=== PATIENT | female | born 2000 | race African-American/Black ===

== ENCOUNTER 2024-04-17 17:16 | Emergency (ER) | payer OTHER, SELFPAY ==
[2024-04-17 18:01] VITALS: BP 177/113; PULSE 90; RESP 17; TEMP 37.2; O2SAT 98; BMI 42.4
--- NOTE | 2024-04-17 18:02 | ED.GENADULT ---
HPI - General Adult General Chief complaint: General Medical Stated complaint: [facility] Time Seen by Provider: 04/17/24 21:03 Source: patient Mode of arrival: ambulatory Limitations: no limitations History of Present Illness HPI narrative: Patient is a 24-year-old female who presents to the emergency department for evaluation. [facility] reports [facility], she had unprotected sexual intercourse who days ago, she states that they were unable to get her an appointment within the 72 hour time frame and recommended she come to the emergency department for further treatment. Denies any known sexually transmitted infections from this individual but would like prophylaxis. She is currently asymptomatic She arrives to the Emergency Department hypertensive which she states is her baseline, she states that she did not take her blood pressure medication today but she typically is compliant with that. She denies dizziness, lightheadedness, headache, neck pain vision changes chest pain, shortness of breath, numbness or tingling of the extremities. Related Data Previous Rx's ?Medication ?Instructions ?Recorded doxycycline hyclate 100 mg capsule 100 mg PO BID #13 caps 04/17/24 Allergies Allergy/AdvReac Type Severity Reaction Status Date / Time No Known Allergies Allergy Verified 04/17/24 18:04 Review of Systems Review of Systems: Yes all other systems are reviewed and are negative PMFSH Past Medical History Attestation statement: The following information was validated with the patient. Source: old records reviewed Social History Social History Advance Directives: No Advance Directives Information Provided: No Do you have a plan to hurt others: No Plan Physical Exam ED Vital Signs: Vital Signs - 24 hr 04/17/24 18:01 04/17/24 22:10 Temperature 99 F 98.2 F Pulse Rate 90 78 Respiratory Rate 17 20 Blood Pressure 177/113 H 168/118 H Pulse Oximetry 98 99 Oxygen Delivery Method Room Air Room Air BMI result Body Mass Index 42.4 Appearance: Alert.?Oriented to person, place and time. No acute distress.?Normal affect. Eyes: Pupils equal, round and reactive to light.? ENT: Pharynx normal.?? Neck: Normal inspection.? Neck supple.?? CVS: Heart sounds normal. Normal heart rate and rhythm.? Pulses normal.?? Respiratory: No respiratory distress.? Lung sounds clear to auscultation bilaterally?? Abdomen: Soft and non-tender. Normoactive bowel sounds. Skin: Skin warm and dry.? Normal skin color.? Extremities: No lower extremity edema.? Neuro: Moves all extremities spontaneously. Sensation intact bilaterally.. Ambulates with normal steady gait. Course Course Course Narrative: This is a rapid medical exam performed by Tha Reilly NP: Additional HPI, ROS, PE not included below will be deferred to primary provider. Patient is a 24-year-old female presenting to the ED requesting PEP treatment and STI testing after having unprotected sex with a male Tuesday. She denies any symptoms. Partner denied any known STIs. Plan: UA Medical Decision Making Medical Decision Making MDM Narrative: Patient is a 24-year-old female past medical history of hypertension, diabetes, migraines who presents to the emergency department requesting STI prophylaxis including a Pap after unprotected intercourse 2 days ago as per HPI. Currently she is asymptomatic. We discussed sign STI screening, discussed prophylactic treatment options including treatment for chlamydia, gonorrhea including ceftriaxone IM doxycycline orally and precautions with usage and potential side effects, in addition discussed HIV pep, advised this is a 1 month course of treatment, she would be provided with a take home kit from the emergency department setting but will ultimately have to require follow-up with [facility], primary care [facility] for additional dosing and she verbalizes understanding of this. She arrives to the Emergency Department hypertensive a currently asymptomatic, declines antihypertensive in the emergency department, as she took her home dosage that was in her purse. On review of labs, CBC overall unremarkable, no electrolyte derangement, no TAMARA LFTs within normal range, no sign of end-organ dysfunction. Feel that she is stable for discharge outpatient follow-up. All questions answered. Differential Diagnosis Differential Diagnoses: The differential diagnosis associated with the presentation includes (See narrative above) Admission/Observation Consideration of admission/observation: Escalation of care including admission/observation considered Lab Data [facility] Lab Attestation statement: I reviewed the patient's lab results. (See narrative above) 04/17/24 21:57 04/17/24 21:57 Labs: Lab Results 04/17/24 Range/Units 21:57 WBC 11.6 H (4.8-10.8) X10*3/uL RBC 5.12 (4.20-5.50) X10*6/uL Hgb 13.4 (12.0-16.0) g/dl Hct 41.0 (37.0-47.0) % MCV 80.1 (80.0-98.0) fL MCH 26.2 L (27.0-33.0) pg MCHC 32.7 (31.0-35.0) g/dl RDW 13.2 (11.0-16.0) % Plt Count 347 (160-400) X10*3/uL MPV 9.1 L (9.4-12.3) fL Immature Gran % (Auto) Cancelled Neut % (Auto) Cancelled Lymph % (Auto) Cancelled [place] % (Auto) Cancelled Eos % (Auto) Cancelled Baso % (Auto) Cancelled Lymph # (Auto) Cancelled [place] # (Auto) Cancelled Eos # (Auto) Cancelled Baso # (Auto) Cancelled Abs Immat Gran (auto) Cancelled Absolute Neuts (auto) Cancelled Absolute Nucleated RBC 0.000 (0.0-0.012) X10*3/uL Nucleated RBC % (auto) 0.0 (0.0-0.2) /100WBC Neutrophils % (Manual) 49 (45-73) % Band Neutrophils % 0 L (3-5) % Lymphocytes % (Manual) 43 H (20-40) % Monocytes % (Manual) 6 (2-11) % Eosinophils % (Manual) 2 (0-4) % Abs Neuts (Manual) 5.7 (2.0-8.3) X10*3/uL Lymphocytes # (Manual) 5.0 H (1.2-4.9) X10*3/uL Monocytes # (Manual) 0.7 (0.1-1.2) X10*3/uL Eosinophils # (Manual) 0.2 (0.0-0.4) X10*3/uL Platelet Estimate NORMAL (NORMAL) Plt Morphology Comment NORMAL RBC Morphology NOTED Ovalocytes 2+ (15-30) /OIF Smear Tech's Comments MANUAL DIFF Sodium 140 (135-145) mmol/L Potassium 4.0 (3.3-5.1) mmol/L Chloride 104 (96-108) mmol/L Carbon Dioxide 29 (22-29) mmol/L Anion Gap 11 L (12-20) BUN 9 (9-16) mg/dL Creatinine 0.97 (0.5-1.4) mg/dL Estim Creat Clear Calc 115.4 Estimated GFR > 60 Random Glucose 93 (60-115) mg/dL Calcium 10.5 H (8.4-10.2) mg/dL Total Bilirubin 0.3 (0.0-1.0) mg/dL AST 19 (5-31) U/L ALT 20 (0-31) U/L Alkaline Phosphatase 72 (39-117) U/L Total Protein 8.0 (6.5-8.0) g/dL Albumin 4.4 (3.5-5.0) g/dL Prescription Management I considered prescription management with: Antiviral and Antibiotic Chronic Conditions Patient?s care impacted by: Hypertension Discharge Plan Discharge Clinical Impression: Exposure to sexually transmitted infection, Hypertension Patient Disposition: Home, Self-Care Instructions: Postexposure Prophylaxis (ED) Additional Instructions: Take medication as prescribed. [facility] for further dosing of HIV PEP On doxycycline, do not take pills immediately before going to bed and swallow pills with plenty of water. Avoid direct sunlight, iron, antacids, and Pepto Bismol. Call your provider if you develop new ringing in your ears, new problems hearing, dizziness, difficulty swallowing, rash, abdominal discomfort, nausea, or diarrhea.? Your blood pressure was elevated today while in the emergency department, by your account this is around your baseline. As discussed, it is important to take your medication daily as prescribed by her primary care provider. Please follow-up with your primary care provider within the next week, they may consider making dosage changes if they feel necessary. Prescriptions: New doxycycline hyclate 100 mg capsule 100 mg PO BID Qty: 13 0RF Referrals: Physician,Unknown J [Primary Care Provider] - Print Language: Taiwanese
[2024-04-17 22:05] LABS: Hemoglobin 13.4 g/dl (12.0-16.0); Mean Corpuscular HGB Conc 32.7 g/dl (31.0-35.0); Mean Corpuscular Hemoglobin 26.2 pg (27.0-33.0); Mean Corpuscular Volume 80.1 fL (80.0-98.0); Mean Platelet Volume 9.1 fL (9.4-12.3); Platelet Count 347 X10*3/uL (160-400); Red Blood Count 5.12 X10*6/uL (4.20-5.50); Red Cell Distribution Width 13.2 % (11.0-16.0); White Blood Count 11.6 X10*3/uL (4.8-10.8)
[2024-04-17 22:10] VITALS: BP 168/118; PULSE 78; RESP 20; TEMP 36.8; O2SAT 99
[2024-04-17 22:26] LABS: Alanine Aminotransferase 20 U/L (0-31); Albumin Level 4.4 g/dL (3.5-5.0); Alkaline Phosphatase 72 U/L (39-117); Anion Gap 11 (12-20); Aspartate Amino Transferase 19 U/L (5-31); Bilirubin Total 0.3 mg/dL (0.0-1.0); Blood Urea Nitrogen 9 mg/dL (9-16); Calcium 10.5 mg/dL (8.4-10.2); Carbon Dioxide 29 mmol/L (22-29); Chloride 104 mmol/L (96-108); Creatinine Clr Calc Pharmacy 115.4; Estimated Glomerular Filt Rate > 60; Glucose Random 93 mg/dL (60-115); Sodium 140 mmol/L (135-145)
[2024-04-17 22:35] LABS: SLIDE REVIEW MANUAL DIFF
[2024-04-17 22:41] LABS: Eosinophils Absolute Manual 0.2 X10*3/uL (0.0-0.4); Eosinophils Percent Manual 2 % (0-4); Lymphocytes Percent Manual 43 % (20-40); Monocytes Absolute Manual 0.7 X10*3/uL (0.1-1.2); Monocytes Percent Manual 6 % (2-11); Neutrophils Percent Manual 49 % (45-73); Ovalocytes 2+ (15-30) /OIF; Platelet Estimate NORMAL (NORMAL); Platelet Morphology Comment NORMAL; RBC Morphology NOTED
[2024-04-17 22:46] LABS: Band Neutrophils Percent 0 % (3-5); Neutrophils Absolute Manual 5.7 X10*3/uL (2.0-8.3)
[2024-04-17] MEDS: Doxycycline Monohydrate 100 MG CAPSULE PO (23:25)
[2024-04-17] MEDS: Post Exposure Medication Kit 1 KIT PO (23:29)
[2024-04-18 02:12] LABS: CT PCR NOT DETECTED (Not Detect.); NG PCR NOT DETECTED (Not Detect.)
[2024-04-18 08:18] LABS: Syphilis Screen Nonreactive (Nonreactive)
[2024-04-18 09:14] LABS: Bacterial Vaginosis PCR NEGATIVE (Negative); Candida Group PCR NOT DETECTED (Not Detect); Candida glab krusei PCR NOT DETECTED (Not Detect); Trichomonas vaginalis PCR NOT DETECTED (Not Detect)
[2024-04-18 09:34] LABS: HIV AB/AG Nonreactive (Nonreactive); HIV Num 2 0.05 S/CO; HIV Num 3 0.05 S/CO
== END 2024-04-18 00:50 | disposition home or self-care (01) ==
PROVIDERS: Nurse Practitioner Family; Registered Nurse Emergency; Emergency Provider Internal Medicine
DX: I10 Essential (primary) hypertension (principal); Z20.2 Contact with and (suspected) exposure to infections with a predominantly sexual mode of transmission
CPT/HCPCS: 0352U; 36415; 80053; 85007; 85027; 86780; 87389; 87491; 87591; 96374; 99283; 99284; J0696